=== PATIENT | male | born 1970 | race Caucasian/White ===

== ENCOUNTER 2020-11-07 09:38 | Emergency (ER) | payer OTHER, BC ==
--- NOTE | 2020-11-07 10:01 | EDM.PDOC ---
ED HPI GENERAL MEDICAL PROBLEM - General Stated Complaint: BURN TO NECK Time Seen by Provider: 11/07/20 09:55 Source of Information: Reports: Patient History Limitations: Reports: No Limitations - History of Present Illness INITIAL COMMENTS - FREE TEXT/NARRATIVE: Patient comes emergency department today from work at [employer] where he was emptying some fryer's and got some hot grease splashed on him. This happened just prior to arrival. He is unaware of when his last tetanus shot was. He sustained grease hooks to the left neck and jaw and anterior left chest as well as right dorsum wrist. He did not ingest any known gun in his nose. He has not take anything for pain prior to arrival. No COVID exposure no COVID symptoms. - Related Data Allergies Allergy/AdvReac Type Severity Reaction Status Date / Time Unable to Assess Allergy Unverified 08/20/14 13:47 ED ROS GENERAL - Review of Systems Review Of Systems: Comprehensive ROS is negative, except as noted in HPI. ED EXAM, BURN/SMOKE INHALATION - Physical Exam Exam: See Below Exam Limited By: No Limitations General Appearance: Alert, WD/WN, No Apparent Distress Eye Exam: Bilateral Eye: EOMI Ears (Abbreviated): Normal External Exam, Normal TMs Mouth/Throat: No: Dry Mucous Membrane, Gum Swelling, Hoarse Voice, Lip Swelling, Muffled Voice, Oral Hooks, Oral Inflammation, Oral Ulcers, Pharyngeal Erythema, Throat Pain, Throat Swelling, Tongue Swelling, Tonsillar Erythema, Tonsillar Exudates, Tonsillar Swelling, Uvular Deviation, Uvular Edema Head: No Symptoms Neck: Limited Range of Motion, Other (On the left middle mandible inferior side that extendeds down to the nape of the neck and anterior chest aprox 3cm wide and 11 cm in length there is partial and superficial thickness hooks. They are not circumfrential. ). No: Tracheal Deviation Respiratory: No Respiratory Distress, Lungs Clear, Normal Breath Sounds, No Accessory Muscle Use, Chest Non-Tender Cardiovascular: Normal Peripheral Pulses, Regular Rate, Rhythm Peripheral Pulses: 2+: Radial (L), Radial (R), Posterior Tibial (L), Posterior Tibial (R), Dorsalis Pedis (L), Dorsalis Pedis (R) GI/Abdominal: Normal Bowel Sounds, Soft Back Exam: Normal Inspection, Full Range of Motion Extremities: Normal Inspection (Except for superficial thickness hooks to the right dorsal wrist not circumfrencial. Does not involve the digits. ) Neurological: Alert, Oriented, CN II-XII Intact, Normal Cognition, No Motor/Sensory Deficits Psychiatric: Normal Affect, Normal Mood Skin Exam: Warm, Dry, Intact, Normal Color, No Rash Lymphatic: No Adenopathy Front/Back Body Diagram: 1 - partial thickness hooks aprox 3% left mandible and neck and anterior chest. 2 - left dorsal aspect of the wrist superficial hooks aprox 2%. Course - Orders/Labs/Meds Orders: Active Orders 24 hr Category Date Time Status Vaccines to be Administered [RC] PER UNIT ROUTINE Care 11/07/20 10:04 Ordered - Re-Assessments/Exams Free Text/Narrative Re-Assessment/Exam: 11/07/20 10:14 Tetanus updated. Dilaudid 2mg IM Ibuprofen 600mg Orally. Bacitracin and dressing to the hooks. Departure - Departure Time of Disposition: 10:15 Disposition: Home, Self-Care 01 Clinical Impression: Superficial burn, Partial thickness burn - Discharge Information Instructions: Second-Degree Burn, Adult Additional Instructions: Tylenol and or Ibuprofen as needed for pain. Keep the dressing on till tomorrow. Then twice daily cleanse gently with mild soap and water and allow to air dry. Then apply bacitracin and dressing until healed. Watch for signs of infections. If pain not controlled with above. [place] 1 tablet every 6 hrs with food as needed for pain caution sedation. Do not take with Tylenol as this medication has Tylenol in it. RX sent to [facility]. Return to the ED if new or worsening symptoms. Follow up with PCP if any concerns. - My Orders Last 24 Hours: My Active Orders 11/07/20 10:04 Vaccines to be Administered [RC] PER UNIT ROUTINE - Assessment/Plan Last 24 Hours: My Active Orders 11/07/20 10:04 Vaccines to be Administered [RC] PER UNIT ROUTINE
[2020-11-07] MEDS: Ibuprofen 200 MG Tab PO STA (10:13)
[2020-11-07] MEDS: Diphtheria,Pertussis(Acell),Tetanus Vaccine 0.5 ML Syringe IM ONE (10:16)
[2020-11-07] MEDS: HYDROmorphone 1 MG/ML Syringe IM ONE (10:16)
[2020-11-07] MEDS: Mupirocin Oint 22 GM Tube TOP ONE (10:17)
== END 2020-11-07 10:34 | disposition home or self-care (01) ==
LOC: VM.ED 09:38
DX: T20.13XA Burn of first degree of chin, initial encounter (principal); T23.171A Burn of first degree of right wrist, initial encounter; T21.11XA Burn of first degree of chest wall, initial encounter; T31.0 Burns involving less than 10% of body surface; Z23 Encounter for immunization; X12.XXXA Contact with other hot fluids, initial encounter
CPT/HCPCS: 16020; 90471; 90715; 96372; 99283; 99283-25; A9270-GY; J1170